=== PATIENT | male | born 2000 | race Hispanic/Latino ===

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

== ENCOUNTER 2018-01-28 11:28 | Emergency (ER) | payer MEDICAID ==
--- NOTE | 2018-01-28 11:39 | ED PDOC ---
Arrival/HPI - General Time Seen by Provider: 01/28/18 11:38 Historian: Patient - History of Present Illness Narrative History of Present Illness (Text): 01/28/18 11:38 17 y/o male, pmh including hand fracture, nkda, c/o nausea/vomiting/fever/ diarrhea/abdominal pain started yesterday acutely onset with no recent traveling. Lower abdominal pain, nausea and vomiting, tmax unknown, associated with the bodyache and joint pain, no rash, no urinary symptoms, no neck stiffness, no change in vision, no chest pain or shortness of breath, no other medical or psychological complaints. Past Medical History - Provider Review Nursing Documentation Reviewed: Yes - Cardiac Hx Cardiac Disorders: No - Pulmonary Hx Respiratory Disorders: Yes Hx Asthma: Yes - Neurological Hx Neurological Disorder: No - HEENT Hx HEENT Disorder: No - Renal Hx Renal Disorder: No - Endocrine/Metabolic Hx Endocrine Disorders: No - Hematological/Oncological Hx Blood Disorders: No - Integumentary Hx Dermatological Disorder: No - Musculoskeletal/Rheumatological Hx Musculoskeletal Disorders: Yes Hx Fractures: Yes - Gastrointestinal Hx Gastrointestinal Disorders: No - Genitourinary/Gynecological Hx Genitourinary Disorders: No - Psychiatric Hx Psychophysiologic Disorder: No Hx Substance Use: No - Surgical History Hx Orthopedic Surgery: Yes (9 surgeries on right leg) Family/Social History - Physician Review Nursing Documentation Reviewed: Yes Family/Social History: Unknown Family HX Smoking Status: Never Smoked Hx Alcohol Use: No Hx Substance Use: No Allergies/Home Meds Allergies/Adverse Reactions: Allergies No Known Allergies Allergy (Verified 01/28/18 11:48) Review of Systems - Review of Systems Constitutional: Fatigue, Fevers Eyes: absent: Vision Changes ENT: absent: Hearing Changes Respiratory: absent: SOB, Cough Cardiovascular: absent: Chest Pain Gastrointestinal: Abdominal Pain, Diarrhea, Nausea, Vomiting Musculoskeletal: Arthralgias, Myalgias. absent: Back Pain Skin: absent: Rash, Pruritis Psychiatric: absent: Anxiety, Depression, Suicidal Ideation Physical Exam Vital Signs Reviewed: Yes Vital Signs Temp Pulse Resp BP Pulse Ox 01/28/18 15:21 99.1 F 68 18 114/74 99 01/28/18 11:44 99.8 F H 74 18 114/74 96 Temperature: Afebrile Blood Pressure: Normal Pulse: Regular Respiratory Rate: Normal Appearance: Positive for: Well-Appearing, Non-Toxic, Comfortable Pain Distress: None Mental Status: Positive for: Alert and Oriented X 3 - Systems Exam Head: Present: Atraumatic, Normocephalic Pupils: Present: PERRL Extroacular Muscles: Present: EOMI Conjunctiva: Present: Normal Mouth: Present: Moist Mucous Membranes Neck: Present: Normal Range of Motion Respiratory/Chest: Present: Clear to Auscultation, Good Air Exchange. No: Respiratory Distress, Accessory Muscle Use Cardiovascular: Present: Regular Rate and Rhythm, Normal S1, S2. No: Murmurs Abdomen: Present: Tenderness (+periumbilica and rt. lower quadrant tenderness, negative zhou signs. ). No: Distention, Peritoneal Signs, Rebound, Guarding Back: Present: Normal Inspection Upper Extremity: Present: Normal Inspection. No: Cyanosis, Edema Lower Extremity: Present: Normal Inspection. No: Edema Neurological: Present: GCS=15, Speech Normal, Motor Func Grossly Intact, Gait Normal, Memory Normal Skin: Present: Warm, Dry, Normal Color. No: Rashes Psychiatric: Present: Alert, Oriented x 3, Normal Insight, Normal Concentration Medical Decision Making ED Course and Treatment: 01/28/18 11:57 -labs/ua/rapid flu -chest xray -CT abdomen and pelvis -IVF/pepcid/zofran/tylenol -observe and reassess 01/28/18 15:35 -Labs are non-significant -UA show mild wbc -Rapid flu is negative but clinical suspicious is moderate to high. -Chest xray show no active disease -CT abdomen and pelvis show: Findings suggest a diarrheal illness with large amount of liquid stool in the colon and and to a lesser degree within the distal small bowel. No evidence of acute appendicitis. No definitive evidence of mural wall thickening of the colon. -Pt. feels much better, eating and drinking well, IV rocephine ordered. -Discharge home with pepcid, zofran, drink gatorade, macrobid, tamiflu, stay hydrated, follow up with your own pmd and GI within 2 days, return to the ER for any new or worsening signs or symptoms. - Lab Interpretations Lab Results: 01/28/18 12:09 01/28/18 12:09 Lab Results 01/28/18 12:30: Urine Color yellow, Urine Appearance Clear, Urine pH 5.5, Ur Specific [place] >= 1.030, Urine Protein 30 H, Urine Glucose (UA) Negative, Urine Ketones 15 H, Urine Blood Negative, Urine Nitrate Negative, Urine Bilirubin Negative, Urine Urobilinogen 0.2, Ur Leukocyte Esterase Negative, Urine RBC TEST NOT PERFORMED, Urine WBC 5 - 10, Ur Epithelial Cells 4 - 5, Amorphous Sediment Trace 01/28/18 12:09: WBC 4.4 L, RBC 4.78, Hgb 15.0, Hct 42.7, MCV 89.3, MCH 31.4, MCHC 35.1, RDW 12.1, Plt Count 160, MPV 8.8, Gran % 71.2 H, Lymph % (Auto) 15.3 L, [place] % (Auto) 13.3 H, Eos % (Auto) 0.0 L, Baso % (Auto) 0.2, Gran # 3.15, Lymph # (Auto) 0.7 L, [place] # (Auto) 0.6, Eos # (Auto) 0.0, Baso # (Auto) 0.01 01/28/18 12:09: Sodium 141, Potassium 3.8, Chloride 101, Carbon Dioxide 25, Anion Gap 19, BUN 12, Creatinine 0.9, Est GFR ( Amer) > 60, Est GFR (Non- Af Amer) > 60, Random Glucose 97, Calcium 9.6, Magnesium 2.0, Total Bilirubin 0.9, AST 28, ALT 30, Alkaline Phosphatase 65, Total Protein 8.0, Albumin 4.7, Globulin 3.3, Albumin/Globulin Ratio 1.4 01/28/18 12:09: Influenza Typ A,B (EIA) Negative for flu a/b I have reviewed the lab results: Yes - RAD Interpretation Radiology Orders: 01/28/18 11:54 ABD & PELVIS IV CONTRAST ONLY [CT] Stat CHEST TWO VIEWS (PA/LAT) [RAD] Stat Chest xray; HISTORY: Fever COMPARISON: No prior. TECHNIQUE: Chest PA and lateral FINDINGS: LUNGS: No active pulmonary disease. PLEURA: No significant pleural effusion identified. No pneumothorax apparent. CARDIOVASCULAR: Normal. OSSEOUS STRUCTURES: No significant abnormalities. VISUALIZED UPPER ABDOMEN: Normal. OTHER FINDINGS: None. IMPRESSION: No active disease. CT abdomen and pelvis: LOWER THORAX: Lung bases clear. No infiltrate effusion or basilar pneumothorax. Heart size is prominent. No significant pericardial effusion. There is a tiny hiatal hernia. LIVER: Liver exhibits normal size and attenuation pattern. No obvious hepatic mass collection or calcification. Portal and splenic veins are opacified. GALLBLADDER AND BILE DUCTS: Gallbladder is physiologically distended. No evidence of intraluminal gallbladder calculi. PANCREAS: The visualized portions of the pancreas are unremarkable without masses collections or calcifications. No significant pancreatic ductal dilatation SPLEEN: Spleen exhibits normal size and attenuation pattern without mass collection or calcification ADRENALS: There are no adrenal lesions KIDNEYS AND URETERS: Kidneys demonstrate symmetric nephrograms. No evidence of nephrolithiasis or hydronephrosis. BLADDER: Urinary bladder is incompletely distended which presumably accounts for thick- walled appearance. Muscular hypertrophy may contribute. Possibility of a cystitis not excluded. Clinical correlation recommended. REPRODUCTIVE: Unremarkable. APPENDIX: What is felt to represent normal retrocecal appendix is best seen on axial image number [id number] and coronal imaged 39- 50. . BOWEL: Evaluation of the bowel is limited due to the lack of oral contrast material as well as fairly significant motion artifact. . Stomach is incompletely distended. The visualized loops of small bowel containing fluid though exhibit relatively normal contour and caliber. Large amount of liquid stool seen throughout the colon consistent with diarrheal illness. . Clinical correlation recommended. No definitive evidence of mural wall thickening of the colon seen. . PERITONEUM: No gross free intraperitoneal air. No free or loculated fluid collections. LYMPH NODES: Unremarkable. No enlarged lymph nodes. VASCULATURE: Unremarkable. No aortic aneurysm. BONES: No acute compression fractures no retropulsed fragments. Vertebral bodies exhibit relatively normal stature. Minor multilevel degenerative spondylosis of the lower thoracic and lumbar spine. OTHER FINDINGS: None. IMPRESSION: Limited motion degraded study. Impression: Findings suggest a diarrheal illness with large amount of liquid stool in the colon and and to a lesser degree within the distal small bowel. No evidence of acute appendicitis. No definitive evidence of mural wall thickening of the colon. Stator Winder: Radiologist - Medication Orders Current Medication Orders: Sodium Chloride (Sodium Chloride 0.9%) 1,000 mls @ 100 mls/hr IV .Q10H JAIME Sodium Chloride (Sodium Chloride 0.9%) 1,000 mls @ 250 mls/hr IV .Q4H STA Stop: 01/28/18 15:53 Last Admin: 01/28/18 12:08 Dose: 250 mls/hr eMAR Start Stop Document 01/28/18 12:08 EWO (Rec: 01/28/18 12:08 [facility] [id number]) Intravenous Solution Start Date 01/28/18 Start Time 12:08 End Date 01/28/18 End time 16:08 Total Infusion Time 240 Discontinued Medications Acetaminophen (Tylenol 325mg Tab) 650 mg PO STAT STA Stop: 01/28/18 11:55 Last Admin: 01/28/18 12:08 Dose: 650 mg MAR Pain/Vitals Document 01/28/18 12:08 EWO (Rec: 01/28/18 12:09 [facility] [id number]) Pain Reassessment Is This A Pain ReAssessment? No Sleep Is patient sleeping during reassessment? No Presence of Pain Presence of Pain Yes Pain Scale Used Pain Scale Used Numeric Location Pain Location Body Site Abdomen Description Intermittent Intensity 4 Scale Used Numeric Pain Behavior Guarding Famotidine (Pepcid) 20 mg IVP STAT STA Stop: 01/28/18 11:55 Last Admin: 01/28/18 12:08 Dose: 20 mg IVP Administration Document 01/28/18 12:08 EWO (Rec: 01/28/18 12:08 [facility] [id number]) Charges for Administration # of IVP Administrations 1 Ondansetron HCl (Zofran Inj) 4 mg IVP STAT STA Stop: 01/28/18 11:55 Last Admin: 01/28/18 12:08 Dose: 4 mg IVP Administration Document 01/28/18 12:08 EWO (Rec: 01/28/18 12:08 [facility] [id number]) Charges for Administration # of IVP Administrations 1 - PA / MIME ARTIST / Resident Statement MD/DO has reviewed & agrees with the documentation as recorded. Disposition/Present on Arrival - Present on Arrival Any Indicators Present on Arrival: No History of DVT/PE: No History of Uncontrolled Diabetes: No Urinary Catheter: No History of Decub. Ulcer: No History Surgical Site Infection Following: None - Disposition Have Diagnosis and Disposition been Completed?: Yes Diagnosis: Abdominal pain, Diarrhea, UTI (urinary tract infection), Flu-like symptoms Disposition: HOME/ ROUTINE Disposition Time: 11:58 Patient Plan: Discharge Patient Problems: Current Active Problems Problem Status Onset Abdominal pain Acute Condition: IMPROVED Additional Instructions: -Discharge home with pepcid, zofran, drink gatorade, macrobid, tamiflu, stay hydrated, follow up with your own pmd and GI within 2 days, return to the ER for any new or worsening signs or symptoms. Prescriptions: Famotidine [Pepcid] 20 mg PO BID #20 tab Nitrofurantoin Macrocrystals [Macrobid] 100 mg PO BID #14 cap Ondansetron ODT [Zofran ODT] 4 mg PO TID PRN #12 odt PRN Reason: Other Oseltamivir [Tamiflu] 75 mg PO BID #10 cap Referrals: Vince Rodríguez MD [Staff Provider] - Follow up with primary Aman Vyas MD [Staff Provider] - Follow up with primary Forms: WORK NOTE
[2018-01-28 11:48] VITALS: BP 114/74; RESP 18
[2018-01-28] MEDS ORDERED: Sodium Chloride 0.9% 1,000 ML IV STA (11:54)
[2018-01-28] MEDS ORDERED: Sodium Chloride 0.9% 1,000 ML IV SCH (12:00)
[2018-01-28 12:25] LABS: BASO # 0.01 K/mm3 (0.0-2.0); BASO % 0.2 % (0.0-3.0); GRAN # 3.15 (1.4-6.5); GRAN % 71.2 % (50.0-68.0); LYMPH # 0.7 (1.2-3.4); LYMPH % 15.3 % (22.0-35.0); MEAN CELL VOLUME 89.3 fl (80.0-105.0); MEAN CORPUSCULAR HEMOGLOBIN 31.4 pg (25.0-35.0); MEAN CORPUSCULAR HGB CONC 35.1 g/dl (31.0-37.0); MEAN PLATELET VOLUME 8.8 fl (7.0-11.0); MONO # 0.6 (0.1-0.6); MONO % 13.3 % (1.0-6.0); RBC 4.78 10^6/uL (3.5-6.1); RED CELL DISTRIBUTION WIDTH 12.1 % (11.5-14.5); WHITE BLOOD COUNT 4.4 10^3/ul (4.5-11.0)
[2018-01-28 12:47] LABS: PH,URINE 5.5 (4.7-8.0); URINE BILIRUBIN NEGATIVE (NEGATIVE); URINE BLOOD NEGATIVE (NEGATIVE); URINE GLUCOSE (UA) NEGATIVE (NEGATIVE); URINE LEUKOCYTE ESTERASE NEGATIVE Leu/uL (NEGATIVE); URINE PROTEIN 30 mg/dL (<30 mg/dL); URINE UROBILINOGEN 0.2 E.U./dL (<1 E.U./dL)
[2018-01-28 12:49] LABS: URINE APPEARANCE CLEAR (CLEAR)
[2018-01-28 12:49] LABS: ALB/GLOB RATIO 1.4 (1.1-1.8); ALBUMIN 4.7 g/dL (3.0-4.8); ALT/SGPT 30 U/L (7-56); AST/SGOT 28 U/L (17-59); BLOOD UREA NITROGEN 12 mg/dL (7-21); CALCIUM 9.6 mg/dL (8.4-10.5); GFR AFRICAN-AMERICAN > 60; GFR NON-AFRICAN AMERICAN > 60
[2018-01-28 12:53] LABS: URINE AMORPHOUS SEDIMENT TRACE
[2018-01-28] MEDS ORDERED: Iohexol 350 MG/100 ML VIAL ONE (13:04)
--- NOTE | 2018-01-28 14:37 | RAD ---
HISTORY: Fever COMPARISON: No prior. TECHNIQUE: Chest PA and lateral FINDINGS: LUNGS: No active pulmonary disease. PLEURA: No significant pleural effusion identified. No pneumothorax apparent. CARDIOVASCULAR: Normal. OSSEOUS STRUCTURES: No significant abnormalities. VISUALIZED UPPER ABDOMEN: Normal. OTHER FINDINGS: None. IMPRESSION: No active disease.
--- NOTE | 2018-01-28 14:56 | CT ---
PROCEDURE: CT scan abdomen and pelvis dated 01/28/2018 HISTORY: Lower abdominal pain vomiting and fever COMPARISON: None. TECHNIQUE: Contiguous axial images of the abdomen and pelvis performed following intravenous injection of approximately 100 cc Omnipaque 350. Coronal and Sagittal reformats generated. Radiation dose: Total exam DLP = This CT exam was performed using one or more of the following dose reduction techniques: Automated exposure control, adjustment of the mA and/or kV according to patient size, and/or use of iterative reconstruction technique. This examination is limited by motion artifact. FINDINGS: LOWER THORAX: Lung bases clear. No infiltrate effusion or basilar pneumothorax. Heart size is prominent. No significant pericardial effusion. There is a tiny hiatal hernia. LIVER: Liver exhibits normal size and attenuation pattern. No obvious hepatic mass collection or calcification. Portal and splenic veins are opacified. GALLBLADDER AND BILE DUCTS: Gallbladder is physiologically distended. No evidence of intraluminal gallbladder calculi. PANCREAS: The visualized portions of the pancreas are unremarkable without masses collections or calcifications. No significant pancreatic ductal dilatation SPLEEN: Spleen exhibits normal size and attenuation pattern without mass collection or calcification ADRENALS: There are no adrenal lesions KIDNEYS AND URETERS: Kidneys demonstrate symmetric nephrograms. No evidence of nephrolithiasis or hydronephrosis. BLADDER: Urinary bladder is incompletely distended which presumably accounts for thick-walled appearance. Muscular hypertrophy may contribute. Possibility of a cystitis not excluded. Clinical correlation recommended. REPRODUCTIVE: Unremarkable. APPENDIX: What is felt to represent normal retrocecal appendix is best seen on axial image number [id number] and coronal imaged 39- 50. . BOWEL: Evaluation of the bowel is limited due to the lack of oral contrast material as well as fairly significant motion artifact. . Stomach is incompletely distended. The visualized loops of small bowel containing fluid though exhibit relatively normal contour and caliber. Large amount of liquid stool seen throughout the colon consistent with diarrheal illness. . Clinical correlation recommended. No definitive evidence of mural wall thickening of the colon seen. . PERITONEUM: No gross free intraperitoneal air. No free or loculated fluid collections. LYMPH NODES: Unremarkable. No enlarged lymph nodes. VASCULATURE: Unremarkable. No aortic aneurysm. BONES: No acute compression fractures no retropulsed fragments. Vertebral bodies exhibit relatively normal stature. Minor multilevel degenerative spondylosis of the lower thoracic and lumbar spine. OTHER FINDINGS: None. IMPRESSION: Limited motion degraded study. Impression: Findings suggest a diarrheal illness with large amount of liquid stool in the colon and and to a lesser degree within the distal small bowel. No evidence of acute appendicitis. No definitive evidence of mural wall thickening of the colon.
[2018-01-28 15:22] VITALS: PULSE 68; TEMP 99.1; O2SAT 99
[2018-01-28] MEDS ORDERED: cefTRIAXone 1 gm 1 GM/100 ML BAG IVPB STA (15:32)
== END 2018-01-28 16:47 | disposition home or self-care (01) ==
LOC: ED 11:28
DX: J11.1 Influenza due to unidentified influenza virus with other respiratory manifestations (principal); N39.0 Urinary tract infection, site not specified; R19.7 Diarrhea, unspecified; R10.9 Unspecified abdominal pain
CPT/HCPCS: 71046; 74177; 80053; 81001; 83735; 85025; 87086; 87804; 96361; 96365; 96375; 99283; J0696; J2405; J7040; Q9967